=== PATIENT | male | born 1995 | race Two or more races ===

== ENCOUNTER → 2019-02-25 | Outpatient (CLI) | payer OTHER ==
[~2019-02-25] MED LIST: GADOTERATE 2.5 MMOL/5 ML VIAL ONE; LIDOCAINE-MPF 1%, 5ML ONE; ROPivacaine/PF 0.2%, 10 ML ONE
== END | disposition home or self-care (01) ==
LOC: RAD 08:26
PROVIDERS: ATTEND Physician Assistant Surgical
DX: M25.859 Other specified joint disorders, unspecified hip (principal)
CPT/HCPCS: 73525; 73722; A9575; J2795